=== PATIENT | female | born 1990 | race Two or more races ===

== ENCOUNTER → 2016-08-28 | Day surgery (SDC) | payer BC, OTHER ==
[~2016-08-28] MED LIST: ALBUTEROL20 ml INH; HYDROCODON-ACE1 EAC5 PO; PERCOCET 5/321 UDTAB PO; PROVENTIL INH0.5 ML NEB; ROXICODONE5 MG PO; VITAMIN D350000 UNIT PO; XANAX2 MG PO
--- NOTE | ~2016-08-28 | OR ---
Unit #: [id number] #: [id number] Patient: LA NENA MENDEZ [id number] [address] [place], [place] [address] [id number] O MR#: [id number] NAME: LA NENA MENDEZ ROOM: Date of Procedure: 08/28/2016 Admission Date: 08/28/2016 Surgeon: Omer Cordova M.D. : 1990 Attending Physician: Omer Cordova M.D. Primary Care Physician: Dustin Schaffer M.D. PROCEDURE OPERATIVE NOTE PREOPERATIVE DIAGNOSES 1. Cervical disk disease. 2. Neck pain. 3. Cervical radiculopathy. 4. Cervicogenic headaches. POSTOPERATIVE DIAGNOSES 1. Cervical disk disease. 2. Neck pain. 3. Cervical radiculopathy. 4. Cervicogenic headaches. PROCEDURE PERFORMED Cervical epidural steroid injection with intravenous sedation and fluoroscopic guidance for needle localization. HISTORY Patient is a 25-year-old female with previously mentioned diagnoses. She (1)____ did very well last year with a cervical epidural steroid injection. The patient (2) of the pain (3) with conservative measures. Based on the good response, pathology, and symptomatology, plan is to repeat the cervical epidural steroid injection today. PROCEDURE Patient was placed in a seated position. Standard monitors were applied. Versed, 2 mg, and 100 mcg of fentanyl were given for sedation and anxiolysis, which were adequate. Vital signs remained stable. Sterile prep and drape then of the cervical area was performed. The skin at the C6-7 level was localized with 1% lidocaine. An 18 gauge Easy Eyetead needle was advanced via a hanging drop technique and fluoroscopic guidance in toward the epidural space. After confirming proper position with fluoroscopy and radiographic contrast, 80 mg of Depo-Medrol and 2 mL of 0.25% bupivacaine were deposited. The patient tolerated the procedure otherwise well and was discharged to the recovery room in stable condition. Dictated by... Omer Cordova M.D. Unit #: [id number] #: [id number] Patient: LA NENA MENDEZ JEREMIE/idania TD: 08/28/2016 12:13 JOB #: [id number] PROCEDURE OPERATIVE NOTE Page 1 of 1 X Omer Cordova MD X PROCEDURE OPERATIVE NOTE
--- NOTE | ~2016-08-28 | OR ---
Unit #: [id number] #: [id number] Patient: LA NENA MENDEZ [id number] [address] [address] [id number] O MR#: [id number] NAME: LA NENA MENDEZ ROOM: Date of Procedure: 09/11/2016 Admission Date: 08/28/2016 Surgeon: Omer Cordova M.D. : 1990 Attending Physician: Omer Cordova M.D. Primary Care Physician: Dustin Schaffer M.D. OPERATIVE REPORT PREOPERATIVE DIAGNOSES Cervical disk disease, neck pain, cervical radiculopathy. POSTOPERATIVE DIAGNOSES Cervical disk disease, neck pain, cervical radiculopathy. PROCEDURE PERFORMED Cervical epidural steroid injection with intravenous sedation and fluoroscopic guidance for needle localization. INDICATIONS FOR PROCEDURE The patient is 25-year-old female with increased neck and upper extremity pain associated with known cervical disk and spine disease. Plan is for trial of epidural steroids. Risks and benefits of all have been reviewed. DESCRIPTION OF PROCEDURE The patient was placed in a seated position. Standard monitors were applied. 2 mg of Versed and 100 mcg of fentanyl were given for sedation and anxiolysis, which were adequate. Vital signs remained stable. Sterile prep and drape then of the cervical area was performed. The skin at the C6-C7 level was localized with 1% lidocaine. An 18-gauge Hustead needle was then advanced via hanging drop technique and fluoroscopic guidance in toward the epidural space. The patient did not complain of any pain or paresthesia during needle advancement. After confirming proper positioning with fluoroscopy and radiographic contrast, 80 mg of Depo-Medrol and 2 mL of 0.25% bupivacaine were deposited. The patient tolerated the procedure otherwise well and was discharged to the recovery room in stable condition. Dictated by... Donnie Pablo/kaleb TD: 09/12/2016 00:55 JOB #: [id number] Unit #: [id number] #: [id number] Patient: LA NENA MENDEZ OPERATIVE REPORT Page 1 of 1 X Omer Cordova MD X PROCEDURE OPERATIVE NOTE
== END | disposition home or self-care (01) ==
LOC: CCSC 10:46
DX: M50.10 Cervical disc disorder with radiculopathy, unspecified cervical region (principal); G44.89 Other headache syndrome; F41.9 Anxiety disorder, unspecified; Z88.8 Allergy status to other drugs, medicaments and biological substances; Z91.013 Allergy to seafood; Z91.041 Radiographic dye allergy status; Z91.048 Other nonmedicinal substance allergy status; Z79.891 Long term (current) use of opiate analgesic; Z79.899 Other long term (current) drug therapy
CPT/HCPCS: J1040; J2250; J3010